=== PATIENT | female | born 1940 | race Caucasian/White ===

== ENCOUNTER 2019-10-04 11:23 | Outpatient (CLI) | payer MEDICARE, OTHER, SELFPAY ==
--- NOTE | 2019-10-04 11:32 | MM_ITS ---
WS: [id number] BILATERAL DIGITAL DIAGNOSTIC MAMMOGRAM MAMMOGRAPHY WITH CAD CLINICAL INFORMATION: BREAST MASS COMPARISON: May 28, 2018, 12/21/2018 and 06/18/2018 TECHNIQUE: Bilateral CC, MLO, and ML views. FINDINGS: Scattered fibroglandular densities bilaterally. Stable ovoid lesion lower inner right breast measurin g 11 mm. Ultrasound is pending. Prior postoperative changes lumpectomy left breast is unchanged in appearance. No new lesions. ULTRASOUND BREAST RIGHT TECHNIQUE: Ultrasound right breast focused area of concern. CLINICAL INFORMATION: BREAST MASS COMPARISON: December 21, 2018, 06/18 2018 FINDINGS: Ultrasound right breast at the 2:00 position 2 cm from the nipple. Hypoechoic lesion at the 2:00 posi tion measuring 1.1 x 0.6 cm appears unchanged since December 21, 2018 likely a complex cyst. Additio nal echogenic solid lesion at the 2:00 position 3 cm from the nipple superficial location. This measu res 1.1 x 0.3 cm also unchanged in size and appearance and likely represents lipoma or fibroadenolipo ma. Findings are stable from the prior examination recommend additional six-month follow-up of the hypoe choic complex cystic lesion with right diagnostic mammography and ultrasound MM/[place] [id number] IMPRESSION: BI-RADS: 3-Probably Benign FOLLOW UP: 6 Month Follow-up
== END 2019-10-04 11:24 | disposition home or self-care (01) ==
LOC: RADSHAW 11:30
PROVIDERS: PCP Family Medicine; Visit Provider Family Medicine
DX: R92.8 Other abnormal and inconclusive findings on diagnostic imaging of breast (principal); N64.89 Other specified disorders of breast
CPT/HCPCS: 76642; 77066

== ENCOUNTER 2020-09-17 10:11 | Outpatient (CLI) | payer MEDICARE, OTHER, SELFPAY ==
--- NOTE | 2020-09-17 10:19 | MM_ITS ---
WS: [id number] DIAGNOSTIC BILATERAL DIGITAL MAMMOGRAM WITH CAD RIGHT breast ultrasound, limited HISTORY: 6 MO F/U 2:00 LESION COMPARISON: 10/04/2019, 06/18/2018, 05/28/2018 and 04/25/2017 TECHNIQUE: Bilateral craniocaudad, mediolateral oblique, and mediolateral views are submitted. Spot c ompression RIGHT CC and MLO. Computer aided detection utilized. Breast composition: There are scattered areas of fibroglandular density. Mass persists in the medial RIGHT breast near 2:00. Mass now measures 6 x 8 mm and has decreased slightly in size. Additional sta ble postoperative changes in the anterior RIGHT breast. There are multiple surgical clips. There is a lso adjacent biopsy clip. RIGHT breast ultrasound, limited. Ultrasound is directed to the 2:00 axis. At 2:00, 2 cm the nipple is a hypoechoic mass measuring 8 x 5 x 8 mm. No increased vascularity. There is no significant through transmission. This mass has sligh tly decreased in size from the prior study suggesting this is probably a complex cyst. MM/[place] [id number] IMPRESSION: BI-RADS: 3-Probably Benign FOLLOW UP: 6 Month Follow-up Recommend 6 month RIGHT breast ultrasound limited to 2:00. Favor this nodule is a complex cyst and benign. Nodule has decreased in size slightly since the james or study.
== END 2020-09-17 10:12 | disposition home or self-care (01) ==
LOC: RADSHAW 10:17
PROVIDERS: PCP Family Medicine; Visit Provider Family Medicine
DX: N64.89 Other specified disorders of breast (principal)
CPT/HCPCS: 76642; 77066

== ENCOUNTER 2021-07-12 10:58 | Outpatient (CLI) | payer MEDICARE, OTHER, SELFPAY ==
--- NOTE | 2021-07-12 11:09 | US_ITS ---
WS: [id number] ULTRASOUND BREAST RIGHT TECHNIQUE: Ultrasound right breast focused area of concern. CLINICAL INFORMATION: PREVIOUS LUMPECTOMY COMPARISON: 09/17/2020 and 10/04/2019 FINDINGS: Ultrasound RIGHT breast at the 2:00 position 2 cm from the nipple. History of prior RIGHT lumpectomy. Previously described suspected complex cyst at the 2:00 position measures smaller today 4.4 x 4.7 x 3.1 mm compared to 8.4 x 4.8 x 7.9 mm previous. Recommend additional six-month follow-up to confirm s tability. Findings are probably benign. US/US breast RT limited* [id number] IMPRESSION: BI-RADS 3 PROBABLY BENIGN FOLLOW UP: 6 MONTH RIGHT BREAST ULTRASOUND
== END 2021-07-12 10:59 | disposition home or self-care (01) ==
LOC: RAD 11:00
PROVIDERS: PCP Family Medicine; Visit Provider Family Medicine
DX: Z98.890 Other specified postprocedural states (principal); N60.01 Solitary cyst of right breast
CPT/HCPCS: 76642

== ENCOUNTER 2022-03-07 07:54 | Outpatient (CLI) | payer MEDICARE, OTHER, SELFPAY ==
--- NOTE | 2022-03-07 08:00 | MM_ITS ---
WS: [id number] BILATERAL 3D TOMOSYNTHESIS DIGITAL DIAGNOSTIC MAMMOGRAPHY WITH CAD CLINICAL INFORMATION: ABNORMAL MAMMO HISTORY: Six-month follow-up COMPARISON: 09/17/2020 and 07/12/2021, October 04, 2019, and 2018 TECHNIQUE: Bilateral CC, MLO, and ML views. FINDINGS: Scattered fibroglandular densities bilaterally. Postoperative changes lumpectomy LEFT breast parenchy ma fibrosis is stable. 6 mm ovoid nodule inner RIGHT breast appears slightly smaller today. Ultrasoun d described below. No suspicious interval changes. A few incidental punctate calcifications. Stable p unctate clustered calcifications RIGHT breast. ULTRASOUND BREAST RIGHT TECHNIQUE: Ultrasound right breast focused area of concern. CLINICAL INFORMATION: ABNORMAL MAMMO FINDINGS: Ultrasound RIGHT breast at the 2:00 position 2 cm from the nipple. Previously described suspected com plex cyst appears slightly smaller today measuring 4.3 x 3.4 mm. This has a benign appearance. No oth er suspicious findings. Recommend return to annual screening mammography. MM/[place] [id number] IMPRESSION: BI-RADS: 2-Benign FOLLOW UP: 1 Year Follow-up Recommend return to annual screening mammography.
--- NOTE | 2022-03-07 08:51 | US_ITS ---
WS: [id number] BILATERAL 3D TOMOSYNTHESIS DIGITAL DIAGNOSTIC MAMMOGRAPHY WITH CAD CLINICAL INFORMATION: ABNORMAL MAMMO HISTORY: Six-month follow-up COMPARISON: 09/17/2020 and 07/12/2021, October 04, 2019, and 2018 TECHNIQUE: Bilateral CC, MLO, and ML views. FINDINGS: Scattered fibroglandular densities bilaterally. Postoperative changes lumpectomy LEFT breast parenchy ma fibrosis is stable. 6 mm ovoid nodule inner RIGHT breast appears slightly smaller today. Ultrasoun d described below. No suspicious interval changes. A few incidental punctate calcifications. Stable p unctate clustered calcifications RIGHT breast. ULTRASOUND BREAST RIGHT TECHNIQUE: Ultrasound right breast focused area of concern. CLINICAL INFORMATION: ABNORMAL MAMMO FINDINGS: Ultrasound RIGHT breast at the 2:00 position 2 cm from the nipple. Previously described suspected com plex cyst appears slightly smaller today measuring 4.3 x 3.4 mm. This has a benign appearance. No oth er suspicious findings. Recommend return to annual screening mammography. US/US breast RT limited* [id number] IMPRESSION: BI-RADS: 2-Benign FOLLOW UP: 1 Year Follow-up Recommend return to annual screening mammography.
== END 2022-03-07 07:55 | disposition home or self-care (01) ==
LOC: RAD 07:56
PROVIDERS: PCP Family Medicine; Visit Provider Family Medicine
DX: R92.8 Other abnormal and inconclusive findings on diagnostic imaging of breast (principal)
CPT/HCPCS: 76642; 77062; G0279

== ENCOUNTER 2023-03-20 11:21 | Outpatient (CLI) | payer MEDICARE, OTHER, SELFPAY ==
--- NOTE | 2023-03-20 11:29 | MM_ITS ---
WS: [id number] BILATERAL SCREENING DIGITAL TOMOSYNTHESIS MAMMOGRAM WITH CAD HISTORY: SCREENING COMPARISON: 03/07/2022 and 09/17/2020 Bilateral CC and MLO views with tomosynthesis and synthetic mammography submitted. Computer aided det ection analyzed. Breast composition: There are scattered areas of fibroglandular density. No suspicious masses, microc alcifications or architectural distortion. Postsurgical changes in the anterior LEFT breast. IMPRESSION: MM/[place] [id number] BI-RADS: 2-Benign FOLLOW UP: 1 Year Follow-up
== END 2023-03-20 11:22 | disposition home or self-care (01) ==
LOC: RAD 11:22
PROVIDERS: PCP Family Medicine; Visit Provider Family Medicine
DX: Z12.31 Encounter for screening mammogram for malignant neoplasm of breast (principal)
CPT/HCPCS: 77063; 77067

== ENCOUNTER 2024-04-01 09:30 | Outpatient (CLI) | payer MEDICARE, OTHER, SELFPAY ==
--- NOTE | 2024-04-01 09:32 | MM_ITS ---
WS: [id number] BILATERAL SCREENING DIGITAL TOMOSYNTHESIS MAMMOGRAM WITH CAD HISTORY: SCREENING COMPARISON: 03/20/2023, 03/07/2022 Bilateral CC and MLO views with tomosynthesis and synthetic mammography submitted. Computer aided det ection analyzed. Breast composition: There are scattered areas of fibroglandular density. No suspicious masses, microc alcifications or architectural distortion. Numerous surgical clips are noted in the anterior LEFT sherine ast just posterior to the nipple. There is distortion and slight retraction of the nipple which is st able. There are a few scattered benign calcifications within each breast. There is an additional biop sy clip noted in the anterior LEFT upper outer quadrant. MM/MM scr [place] tomosynthesis [id number] IMPRESSION: BI-RADS: 2 - Benign. FOLLOW UP: 1 Year Follow-up
== END 2024-04-01 09:31 | disposition home or self-care (01) ==
PROVIDERS: PCP Family Medicine; Visit Provider Family Medicine
DX: Z12.31 Encounter for screening mammogram for malignant neoplasm of breast (principal); R92.323 Mammographic fibroglandular density, bilateral breasts; R92.1 Mammographic calcification found on diagnostic imaging of breast
CPT/HCPCS: 77063; 77067